=== PATIENT | female | born 1985 | race Caucasian/White ===

== ENCOUNTER 2020-11-08 17:26 | Emergency (ER) | payer OTHER ==
[~2020-11-08] VITALS: Ht 170.2 cm; Wt 117.0 kg
[~2020-11-08 17:26] MED LIST: NOHOMEMEDICATIONS; PERCOCET 5-3251 EACH PO
[2020-11-08] MEDS ORDERED: DOXYCYCLINE 10100 MG PO (18:36)
[2020-11-08 18:43] VITALS: BP 129/82
--- NOTE | 2020-11-09 12:18 | EKG ---
[place] [address] ELECTROCARDIOGRAM REPORT Name: MICHAEL ABDULLAMONT FONTANA Room: [facility]#: [id number] Admission: 11/08/20 Attend Phys: Discharge: 11/08/20 Date of : 85 Date of Service: 11/08/20 1733 Report #: [id number] THIS REPORT FOR: //name// [facility] ED Test Date: 2020-11-08 Test Time: 17:33:38 Pat Name: DESIREE ABDUL Department: Room: Gender: F Levelman: : 1985 Requested By: Velma Cuenca Order Number: [id number] MD: Poncho Moody Measurements Intervals Deport Rate: 74 P: 21 AL: 141 QRS: 42 QRSD: 90 T: 21 QT: 380 QTc: 422 Interpretive Statements Sinus rhythm No previous ECG available for comparison Electronically Signed On 11-09-2020 12:18:10 CDT by Poncho Moody [email or web address] <ELECTRONICALLY SIGNED> By: Poncho Moody MD, [facility] 11/09/20 1218 1733 173 Poncho Moody MD, FACC /EPI
== END 2020-11-08 18:44 | disposition home or self-care (01) ==
LOC: M.ERS 17:26
DX: R07.89 Other chest pain (principal); N63.10 Unspecified lump in the right breast, unspecified quadrant; N64.4 Mastodynia